=== PATIENT | female | born 1970 | race Caucasian/White ===

== ENCOUNTER 2021-02-03 16:14 | Emergency (ER) | payer OTHER, MEDICAID, SELFPAY ==
[2021-02-03] VITALS (40 sets, daily range): BP systolic 123–171; BP diastolic 79–130; PULSE 105–128; RESP 9–33; TEMP 36.7; O2SAT 86–97
--- NOTE | 2021-02-03 17:00 | RT.EKG_ITS ---
APPROVED REPORT Exam: Resting ECG Reason for Exam: tachycardia Patient Location: E HR:114 bpm ECG Measurements Heart Rate 114 AXIS NC 143 P 53 QRSd 67 QRS 66 QT 361 T -28 QTc 499 Conclusion Sinus tachycardia...rate> 99 Nonspecific T abnormalities, anterior leads...T <-0.10mV, V2-V4
[2021-02-03] MEDS: diazePAM 5 MG TAB PO (17:15)
[2021-02-03 17:47] LABS: ALT 27 U/L (14-59); AST 17 U/L (15-37); Alkaline Phosphatase 127 U/L (46-116); Anion Gap 11.7 mmol/L (3-11); BUN 5 mg/dL (7-18); Bilirubin, Total 0.6 mg/dL (0.2-1.0); CO2 29.3 mmol/L (21.0-32.0); CREATININE 1.3 mg/dL (0.55-1.02); Chloride 98 mmol/L (98-107); Estimated GFR 43.72 (mL/min/1.73m2); Glucose 185 mg/dL (74-106); Potassium 3.4 mmol/L (3.5-5.1); Sodium 139 mmol/L (136-145); Troponin I < 0.05 ng/mL (<0.06)
[2021-02-03 17:56] LABS: Abs Immature Grans 0.04 10^3/uL (0.0-0.06); Absolute Basophil Count 0.08 10^3/uL (0.0-0.2); Absolute Eosinophil Count 0.01 10^3/uL (0.0-0.7); Absolute Lymphocyte Count 2.62 10^3/uL (1.2-3.4); Absolute Monocyte Count 0.75 10^3/uL (0.1-0.8); Absolute Neutrophil Count 9.68 10^3/uL (1.2-6.7); Basophils % 0.6; Eosinophils % 0.1; HCT 50.9 % (36.0-46.0); HGB 15.9 g/dL (11.2-15.7); Immature Grans % 0.3; Lymphocytes % 19.9; MCH 26.7 pg (27.0-33.0); MCHC 31.2 % (32.0-36.0); MCV 85.5 fL (80-95); MPV 10.3 fL (8.0-11.0); Monocytes % 5.7; Neutrophils % 73.4; Nucleated RBC 0 %; Platelet Count 330 10^3/uL (130-400); RBC 5.95 10^6/uL (3.93-5.22); RDW 13.4 % (11.7-14.6); RDW-SD 42.1 fL; WBC 13.19 10^3/uL (4.4-10.8)
[2021-02-03] MEDS: Lactated Ringers 500 ML IV (18:05)
--- NOTE | 2021-02-03 19:30 | DI.CT_ITS ---
Exam(s) CT HEAD WO EXAM: CT HEAD WO CLINICAL HISTORY: frontal LOPEZ, ears ringing. TECHNIQUE: Imaging Protocol: Axial computed tomography images with coronal and sagittal reformatted images were created and reviewed COMPARISON: No exams were available for comparison FINDINGS: Ventricles and Extra axial spaces: Normal in size and morphology for the patient's age. Hemorrhage: None. Cerebral parenchyma: Normal. There are findings consistent with a partially empty sella. Midline shift: None. Brainstem/Cerebellum: Normal. Calvarium: Normal. Visualized Paranasal sinuses/Mastoids: Clear. Soft Tissues: Unremarkable. IMPRESSION: No acute intracranial process. RADIATION DOSE DELIVERED: 795.26mGy.cm Total DLP DATA REPOSITORY: All CT scans at this facility are submitted to the National Radiology Data Registry (NRDR) Dose Index Registry (DIR) with the [employer] (A[employer]). RADIATION OPTIMIZATION: All CT scans at this facility use at least one of these dose optimization te chniques: automated exposure control; mA and/or kV adjustment per patient size (includes targeted exa ms where dose is matched to clinical indication); or iterative reconstruction.
--- NOTE | 2021-02-03 19:31 | ED.GENADUL_ITS ---
Discharge Plan Disposition Patient Disposition: HOME Condition: Stable Discharge Details Clinical Impression: Anxiety, Tinnitus, bilateral, Difficulty sleeping Primary Care Provider: Rosibel Corbett ED Provider: Nate Dobbs Home Meds and New Rx's Prescriptions: No Action buspirone 30 mg tablet 30 mg PO BID Qty: 60 RF: 0 hydroxyzine HCl 50 mg tablet 50 mg PO BID Qty: 60 RF: 0 olanzapine 10 mg tablet 10 mg PO DAILY Qty: 30 RF: 0 omeprazole magnesium 20 mg tablet,delayed release (DR/EC) 20 mg PO DAILY Qty: 90 RF: 1 methadone 10 mg/mL solution 95 mg subcut DAILY RF: 0 Discharge Instructions Instructions: Alprazolam (By mouth), Anxiety (ED) Additional Instructions: Please take Xanax 0.25 mg orally once at night only if you have severe anxiety and to help you sleep. Do not take this with your methadone. Please contact your primary care physician to arrange follow-up. Call on Friday. Please do not take Benadryl. I recommend you decrease your dose of hydroxyzine to 50 mg twice a day. Discussed continued dosing with your doctor. Return to the ER immediately for any worsening or new concerning symptoms. Referrals: Rosibel Corbett, CHLOE [Primary Care Provider] - Discharge Data Discharge Date/Time-TO BE ENTERED AT DEPARTURE: 02/03/21 21:20 Medical Decision Making 50-year-old female with history of anxiety, bipolar, opioid use disorder now on methadone, PTSD, here with ear ringing and discomfort bilaterally and inability to sleep for the past 4 nights. Patient is tachycardic and hypertensive on arrival. Patient anxious. I gave Valium and reassessed and she noted she continued to have some ear discomfort. She did appear more relaxed. She also noted some frontal headache on reassessment. CT of the head was obtained and no acute abnormality was noted with no mass-effect. Screening labs reviewed: Leukocytosis. Patient afebrile. Patient reassessed and notes she continues to feel anxious and has continued ear discomfort. She is most concerned that she has not been able to sleep. I will give patient a couple doses of Xanax and have advised her to follow-up with her primary care physician. Usual and customary discharge instructions were reviewed with the patient. Lab Data Lab results reviewed: Yes I reviewed the patient's lab results. HPI General Mode of arrival: ambulatory . Date/Time Provider Initiated Documentation: 02/03/21 16:32 . Limitations to Documentation: no limitations . Information obtained by: patient . HPI Narrative: 50-year-old female with history of anxiety, bipolar, opioid use disorder now on methadone, PTSD, here with chief complaint ear ringing. Symptoms are bilateral. Moderate. No modifiers. She has associated discomfort bilateral ears. Also notes inability to sleep for the past 4 nights. Patient states taking medications as prescribed. Denies hallucinations. No LOPEZ. Related Data Home Medications Medication Instructions Recorded Confirmed buspirone 30 mg tablet 30 mg PO BID #60 tab 02/07/21 02/07/21 hydroxyzine HCl 50 mg tablet 50 mg PO BID #60 tab 02/07/21 02/07/21 methadone 10 mg/mL injection 95 mg SUBCUT DAILY 02/07/21 02/07/21 solution olanzapine 10 mg tablet 10 mg PO DAILY #30 tab 02/07/21 02/07/21 omeprazole magnesium 20 mg 20 mg PO DAILY #90 tab 02/07/21 02/07/21 tablet,delayed release Previous Rx's Medication Instructions Recorded buspirone 30 mg tablet 30 mg PO BID #60 tab 02/07/21 hydroxyzine HCl 50 mg tablet 50 mg PO BID #60 tab 02/07/21 olanzapine 10 mg tablet 10 mg PO DAILY #30 tab 02/07/21 omeprazole magnesium 20 mg 20 mg PO DAILY #90 tab 02/07/21 tablet,delayed release Allergies Allergy/AdvReac Type Severity Reaction Status Date / Time ciprofloxacin Allergy Severe Anaphylaxis Verified 02/07/21 12:51 cephalexin [From Keflex] Allergy Verified 02/07/21 12:51 gabapentin Allergy trouble Verified 02/07/21 12:51 breathing latex AdvReac Mild blister Verified 02/07/21 12:51 naproxen AdvReac Bleeding Verified 02/07/21 12:51 surgical tape AdvReac contact Uncoded 02/07/21 12:51 dermatitis General Stated Complaint: GenMedical BRITTANY: 3 Review of Systems All systems reviewed & are unremarkable except as noted in HPI and below Constitutional Constitutional: Denies fever(s) ENT Ears, Nose, Mouth, and Throat: Reports as per HPI [facility] Medical History (Updated 02/07/21 @ 13:58 by Rosibel Corbett NP) Anxiety Bipolar 1 disorder, depressed Hyperlipidemia, unspecified IFG (impaired fasting glucose) Insomnia Opioid use disorder, severe, on maintenance therapy BAART Peripheral neuropathy 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 and lumbar PTSD (post-traumatic stress disorder) Tinnitus, bilateral Tobacco use disorder Vapes Surgical History (Updated 02/07/21 @ 13:14 by Rosibel Corbett NP) History of partial hysterectomy (~2009) [place]; done for heavy bleeding Family History (Updated 02/07/21 @ 13:17 by Rosible Corbett NP) Father Cancer lung (smoker) Social History (Updated 02/07/21 @ 13:21 by Rosibel Corbett NP) Smoking/Tobacco Use Status: Current every day Tobacco Type: e-cigarettes Tobacco: How many years used: 20 Smokeless tobacco user: other Smoking risk assessment performed?: Yes Alcohol Intake: never Drug use: Current Sobriety Substance use type: does not use and former substance user Date of last use: opioids Details: Sobriety since ~2013 Adopted: No Caregiver/Support person: No Foster care: No Household members: none Housing: house Number of Children: 1 number of grandchildren: 0 Communication Needs: None Do you need help understanding health information?: Often current occupation: unemployed (on disability) Pets and animals: No Sexually active: No Do you think of yourself as: straight/heterosexual Current gender identity: female What is your relationship status?: How often do you talk on the phone with friends or family?: once per week How often do you get together with friends or relatives?: never Do you belong to any clubs or organized social groups?: no Panel score (0-1 are the most socially isolated patients): 0 What type of physical activity do you participate in: walking Frequency: 3-4 times per week Lawanda/Druze: Episcopal Agree to transfusion: Yes Seatbelt use: always Drive intox or ride w/intox otr company truck driver: No Working smoke detector in home: Yes Fire extinguisher in home: Yes Carbon monox detector in home: Yes Do you feel safe at home: Yes Do you feel safe in your relationship?: Yes Exam Const General: cooperative and no acute distress HENMT Head: normocephalic and atraumatic Ears: external ears normal and TM's normal bilaterally General nose exam: external nose normal Face and sinus: normal facial exam Mouth: moist mucous membranes Throat: posterior oropharynx normal Eyes Conjunctivae: normal conjunctivae Sclera: normal sclerae EOM: EOM intact bilaterally Neck Neck: trachea midline and supple Resp Auscultation: clear to auscultation bilaterally, no rales, no rhonchi and no wheezes Cardio Jugular venous pressure: no JVD Rate: regular rate and not tachycardic Rhythm: regular rhythm GI Palpation: soft, not firm, no guarding, no masses, not rigid and nontender Skin General skin exam: no rashes or lesions noted Neuro General: patient alert, patient awake, patient oriented x3 and tone normal Cognition: normal cognition Speech: speech normal Motor: muscle tone normal throughout and strength 5/5 throughout Sensory Exam: no sensory deficits noted Extrem General: no edema Psych Appearance: grossly normal Mental Status: mental status grossly normal Speech and Movement: speech and movement normal Affect: anxious affect Course Vital Signs Vital signs: Vital Signs Respiratory Rate 15 02/03/21 16:26 Pulse Oximetry 96 02/03/21 16:26 Temperature 36.7 C 02/03/21 17:14 Temperature Source Skin 02/03/21 17:14 Pulse 105 H 02/03/21 18:34 Pulse 116 H 02/03/21 18:40 Respiratory Rate 23 02/03/21 18:40 Respiratory Effort Non-Labored 02/03/21 18:28 Respiratory Depth Normal 02/03/21 18:28 Respiratory Pattern Normal 02/03/21 18:28 Blood Pressure 133/94 H 02/03/21 18:34 Blood Pressure Mean 103 02/03/21 18:34 Blood Pressure Position Supine 02/03/21 17:14 Pulse Oximetry 95 02/03/21 18:40 Oxygen Delivery Method Room Air 02/03/21 17:14 Oxygen Flow Rate 0 02/03/21 17:14 Pain Level 9 02/03/21 17:14 Lab/Test Results Lab/Test Results: Laboratory Tests Range/Units 02/03/21 02/03/21 17:10 17:10 WBC (4.4-10.8) 10^3/uL 13.19 H RBC (3.93-5.22) 10^6/uL 5.95 H Hgb (11.2-15.7) g/dL 15.9 H Hct (36.0-46.0) % 50.9 H MCV (80-95) fL 85.5 MCH (27.0-33.0) pg 26.7 L MCHC (32.0-36.0) % 31.2 L RDW (11.7-14.6) % 13.4 Plt Count (130-400) 10^3/uL 330 MPV (8.0-11.0) fL 10.3 Immature Gran % 0.3 Neutrophils % 73.4 Lymphocytes % 19.9 Monocytes % 5.7 Eosinophils % 0.1 Basophils % 0.6 Nucleated RBC % % 0 Absolute Neutrophils (1.2-6.7) 10^3/uL 9.68 H Absolute Lymphocytes (1.2-3.4) 10^3/uL 2.62 Absolute Monocytes (0.1-0.8) 10^3/uL 0.75 Absolute Eosinophils (0.0-0.7) 10^3/uL 0.01 Absolute Basophils (0.0-0.2) 10^3/uL 0.08 Sodium (136-145) mmol/L 139 Potassium (3.5-5.1) mmol/L 3.4 L Chloride (98-107) mmol/L 98 Carbon Dioxide (21.0-32.0) mmol/L 29.3 Anion Gap (3-11) mmol/L 11.7 H BUN (7-18) mg/dL 5 L Creatinine (0.55-1.02) mg/dL 1.3 H Estimated GFR/1.73 m2 (mL/min/1.73m2) 43.72 Glucose (74-106) mg/dL 185 H Calcium (8.5-10.1) mg/dL 11.0 H Total Bilirubin (0.2-1.0) mg/dL 0.6 AST (15-37) U/L 17 ALT (14-59) U/L 27 Alkaline Phosphatase (46-116) U/L 127 H Troponin I (<0.06) ng/mL < 0.05 Total Protein (6.4-8.2) g/dL 9.0 H Albumin (3.4-5.0) g/dL 4.0
[2021-02-03] MEDS: Acetaminophen 325 MG TAB 650 MG PO (19:58)
--- NOTE | 2021-02-03 20:20 | DI.VRAD_ITS ---
PROCEDURE INFORMATION: Exam: CT Head Without Contrast Exam date and time: 02/03/2021 7:31 PM Age: 50 years old Clinical indication: Other: Ringing in ears. Dizzy TECHNIQUE: Imaging protocol: Computed tomography of the head without contrast. COMPARISON: No relevant prior studies available. FINDINGS: Brain: Normal. No hemorrhage. Unremarkable white matter. No mass effect. Cerebral ventricles: No ventriculomegaly. Paranasal sinuses: Visualized sinuses are unremarkable. No fluid levels. Mastoid air cells: Visualized mastoid air cells are well aerated. Bones/joints: Unremarkable. No acute fracture. Soft tissues: Unremarkable. Other findings: There is partial empty sella. IMPRESSION: No acute abnormality. Dictated and Authenticated by: Kirill Newberry MD. Ordering:LEIGHTON Sullivan MD
[2021-02-03] MEDS: ALPRAZolam 0.25 MG TAB 0.75 MG PO (21:13)
== END 2021-02-03 21:20 | disposition home or self-care (01) ==
PROVIDERS: Emergency Provider Student in an Organized Health Care Education/Training Program; PCP Nurse Practitioner Family
DX: H93.13 Tinnitus, bilateral (principal); F41.9 Anxiety disorder, unspecified; G47.00 Insomnia, unspecified
CPT/HCPCS: 36415; 80053; 93005; 96360; 99284; 70450; 84484; 85025; 93010

== ENCOUNTER 2021-02-04 03:53 | Emergency (ER) | payer OTHER, MEDICAID, SELFPAY ==
[2021-02-04 03:55] VITALS: BP 171/105; PULSE 133; RESP 20; TEMP 37.2; O2SAT 96
--- NOTE | 2021-02-04 04:48 | ED.GENADUL_ITS ---
Discharge Plan Disposition Patient Disposition: HOME Condition: Improving Discharge Details Clinical Impression: Medication withdrawal, Gastritis Primary Care Provider: Rosibel Corbett ED Provider: Albino Luna Meds and New Rx's Prescriptions: New omeprazole magnesium 20 mg tablet,delayed release (DR/EC) 20 mg PO DAILY Qty: 20 RF: 0 Continued hydroxyzine HCl 50 mg tablet 50 mg PO TID RF: 0 methadone 10 mg/mL Solution 95 mg DAILY RF: 0 olanzapine 10 mg tablet 10 mg PO DAILY Qty: 5 RF: 0 buspirone 30 mg tablet 30 mg PO BID Qty: 10 RF: 0 Discharge Instructions Instructions: Gastritis (ED) Additional Instructions: Your buspirone and olanzapine will be ready for pickup today. This will get you through to appointment with psychiatry. Should also start omeprazole for gastritis. Follow-up with primary care in 1 to 2 weeks for recheck of this. Return to ED if abdominal pain, persistent/significant vomiting of blood, chest pain, shortness of breath, or other concerns. Medical Decision Making In reviewing the patient's medication history it turns out that her buspirone and olanzapine has not been prescribed for the last 2 to 3 weeks. She subsequently started to feel unwell with anxiety, difficulty sleeping, tremors, sweats about 4 days ago. In regards to her vomiting of blood she has a benign abdomen. She has no history of alcohol abuse. She is tachycardic I suspect is more related to withdrawal type symptoms given her lack of buspirone and olanzapine which was stopped abruptly. An NG tube was placed by nursing. No bright red blood returned. Slight darkish colored material turned as well as vomited. NG tube removed. IV has been started but no laboratory studies are sent. Patient given dose of IV pantoprazole. She is also given IM dose of olanzapine and oral dose of buspirone. Patient noted to have urinary frequency so urinalysis sent. Patient currently feeling much better, less anxious, no diapho resis or tremors status post medications. Urine is negative for infection. Prescription for olanzapine, buspirone, omeprazole sent to pharmacy. Patient to follow-up with psychiatry on the as scheduled. She will make appointment with PCP for follow-up of gastritis 2 weeks. Return to ED if problems. Medical Records Medical records reviewed: Yes I reviewed the patient's medical records. HPI General Mode of arrival: EMS . Date/Time Provider Initiated Documentation: 02/04/21 04:48 . Limitations to Documentation: no limitations . Information obtained by: patient, RN notes reviewed and old records reviewed . HPI Narrative: Patient returns to ED after visit earlier this evening now complaining of vomiting blood. Patient seen earlier for the URI type symptoms, ear pain, headache. Work-up included head CT which was negative. Patient reports this morning woke with some gagging and vomited blood twice. Unable to give description of how much. Denies any abdominal pain. Denies any alcohol use. No prior history of ulcers. Denies chest pain or shortness of breath. Continues to be anxious, tremulous, diaphoretic, not feeling well. Related Data Home Medications Medication Instructions Recorded Confirmed hydroxyzine HCl 50 mg tablet 50 mg PO TID 02/02/21 02/04/21 methadone 95 mg DAILY 02/03/21 02/04/21 buspirone 30 mg PO BID #10 tab 02/04/21 olanzapine 10 mg PO DAILY #5 tab 02/04/21 omeprazole magnesium 20 mg PO DAILY #20 tab 02/04/21 Previous Rx's Medication Instructions Recorded buspirone 30 mg PO BID #10 tab 02/04/21 olanzapine 10 mg PO DAILY #5 tab 02/04/21 omeprazole magnesium 20 mg PO DAILY #20 tab 02/04/21 Allergies Allergy/AdvReac Type Severity Reaction Status Date / Time ciprofloxacin Allergy Severe Anaphylaxis Verified 02/04/21 04:01 cephalexin [From Keflex] Allergy Verified 02/04/21 04:01 gabapentin Allergy trouble Verified 02/04/21 04:01 breathing naproxen AdvReac Bleeding Verified 02/04/21 04:01 surgical tape AdvReac contact Uncoded 02/04/21 04:01 dermatitis General Stated Complaint: GenMedical BRITTANY: 3 Review of Systems Narrative: As documented in HPI otherwise negative as below. Const: no fever, chills, weakness Resp: no cough, SOB, pleuritic pain CV: no CP, diaphoresis, edema, syncope GI: no abdominal pain, nausea, diarrhea Neuro: no headache, numbness, focal weakness, confusion PFSH Medical History Anxiety Bipolar 1 disorder, depressed Neuropathy Opioid use disorder, severe, on maintenance therapy PTSD (post-traumatic stress disorder) Surgical History History of partial hysterectomy (~2009) Family History (Updated 01/18/21 @ 09:32 by Lorikalli Melissa) Father Cancer lung Social History Smoking/Tobacco Use Status: Current every day Tobacco Type: e-cigarettes Smoking risk assessment performed?: Yes Alcohol Intake: never 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 HEENT: NC/AT. Normal facial exam. Eyes: Normal conjunctiva and sclera. Neck: Supple. Trachea midline. Lungs: Normal respiratory effort. Cor: RRR. Good radial pulses. GI: Soft. NT/ND. No guarding or rebound. Neuro: A+O x 3. Normal speech, mentation, gait. Cranial nerves II - XII grossly intact. No gross motor or sensory deficit. Ext: No C/C/E. Course Vital Signs Vital signs: Vital Signs Temperature 99.0 F 02/04/21 03:55 Pulse 133 H 02/04/21 03:55 Respiratory Rate 02/04/21 03:55 Blood Pressure 171/105 H 02/04/21 03:55 Pulse Oximetry 96 02/04/21 03:55 Temperature 99.0 F 02/04/21 03:55 Temperature Source Oral 02/04/21 03:55 Pulse 133 H 02/04/21 03:55 Respiratory Rate 02/04/21 03:55 Blood Pressure 171/105 H 02/04/21 03:55 Blood Pressure Position Sitting 02/04/21 03:55 Pulse Oximetry 96 02/04/21 03:55 Oxygen Delivery Method Room Air 02/04/21 03:55 Oxygen Flow Rate 0 02/04/21 03:55 Pain Level 8 02/04/21 03:55
[2021-02-04] MEDS: Pantoprazole 40 MG VIAL IVP (05:29)
[2021-02-04] MEDS: OLANZapine 10 MG VIAL IM (05:31)
[2021-02-04] MEDS: busPIRone 15 MG TAB 30 MG PO (05:38)
[2021-02-04 06:39] LABS: Bilirubin Negative (Negative); Blood Trace-intact (Negative); Clarity Sl Cloudy (Clear); Glucose Negative (Negative); Ketones Negative (Negative); Leukocyte Esterase Negative (Negative); Nitrite Negative (Negative)
[2021-02-04 06:46] LABS: Bacteria Few HPF (Negative); C & S Indicated? No/Sq. Contamination; Casts Negative LPF (Negative); Crystals Negative HPF (Negative); Epithelial Cells Many HPF (Negative); Mucus Negative (Negative); WBC 0-2 HPF (0-5)
== END 2021-02-04 07:03 | disposition home or self-care (01) ==
PROVIDERS: Emergency Provider Emergency Medicine; PCP Nurse Practitioner Family
DX: K29.60 Other gastritis without bleeding (principal); T43.596A Underdosing of other antipsychotics and neuroleptics, initial encounter; Z91.138 Patient's unintentional underdosing of medication regimen for other reason
CPT/HCPCS: 36415; 96372; 96374; 99284; 81003; 81015

== ENCOUNTER 2021-02-05 00:40 | Emergency (ER) | payer OTHER, MEDICAID, SELFPAY ==
[2021-02-05 00:46] VITALS: BP 128/104; PULSE 120; RESP 18; TEMP 36.4; O2SAT 95
--- NOTE | 2021-02-05 00:54 | ED.GENADUL_ITS ---
Discharge Plan Disposition Patient Disposition: HOME Condition: Good Discharge Details Clinical Impression: Anxiety, Difficulty sleeping Primary Care Provider: Rosibel Corbett ED Provider: Albino Luna Meds and New Rx's Prescriptions: Continued hydroxyzine HCl 50 mg tablet 50 mg PO TID RF: 0 methadone 10 mg/mL Solution 95 mg DAILY RF: 0 omeprazole magnesium 20 mg tablet,delayed release (DR/EC) 20 mg PO DAILY Qty: 20 RF: 0 olanzapine 10 mg tablet 10 mg PO DAILY Qty: 5 RF: 0 buspirone 30 mg tablet 30 mg PO BID Qty: 10 RF: 0 Discharge Instructions Additional Instructions: Please orange picker your prescriptions this morning. Begin taking your medication this evening. Remember that the buspirone is morning and night, the olanzapine I would take at night to help you sleep, the hydroxyzine is 3 times a day. The omeprazole is for stomach problem. You do need to follow-up with mental health on the . You will also need to follow-up with primary care in 1 to 2 weeks. Return to ED for new symptoms or unsafe feelings. Medical Decision Making Patient still looks better tonight than she had on her previous visit. She needs to restart her medication as we had discussed at her last visit. She simply mistaken when she should take them and does not seem to actually know that the buspirone is twice a day. Patient will be dosed tonight. Both the nurse and I have had long discussion and instruction regarding picking up the medications in the morning and when to take those medications. She is to follow-up with mental health on the as previously scheduled for further medication management. She should return to ED for new symptoms or feeling unsafe. HPI General Mode of arrival: EMS . Date/Time Provider Initiated Documentation: 02/05/21 00:54 . Limitations to Documentation: no limitations . Information obtained by: patient, RN notes reviewed and old records reviewed . HPI Narrative: Patient returns to ED after 2 visits yesterday for continued anxiety, inability to sleep, seeing things out of the periphery vision. She denies having headache, fever, chest pain, shortness of breath, vomiting, abdominal pain. Last night when I saw her we determined that she had been off her medications. She was given IM olanzapine and oral buspirone with improvement in symptoms. Prescriptions were sent to pharmacy but she did not pick them up today. She thought she was supposed to start taking them the following day. She denies SI or HI. Related Data Home Medications Medication Instructions Recorded Confirmed hydroxyzine HCl 50 mg tablet 50 mg PO TID 02/02/21 02/05/21 methadone 95 mg DAILY 02/03/21 02/05/21 buspirone 30 mg PO BID #10 tab 02/04/21 02/05/21 olanzapine 10 mg PO DAILY #5 tab 02/04/21 02/05/21 omeprazole magnesium 20 mg PO DAILY #20 tab 02/04/21 02/05/21 Previous Rx's Medication Instructions Recorded buspirone 30 mg PO BID #10 tab 02/04/21 olanzapine 10 mg PO DAILY #5 tab 02/04/21 omeprazole magnesium 20 mg PO DAILY #20 tab 02/04/21 Allergies Allergy/AdvReac Type Severity Reaction Status Date / Time ciprofloxacin Allergy Severe Anaphylaxis Verified 02/05/21 00:56 cephalexin [From Keflex] Allergy Verified 02/05/21 00:56 gabapentin Allergy trouble Verified 02/05/21 00:56 breathing naproxen AdvReac Bleeding Verified 02/05/21 00:56 surgical tape AdvReac contact Uncoded 02/05/21 00:56 dermatitis General BRITTANY: 3 Review of Systems Narrative: As documented in HPI otherwise negative as below. Const: no fever, chills, weakness Resp: no cough, SOB, pleuritic pain CV: no CP, diaphoresis, edema, syncope GI: no abdominal pain, nausea, vomiting, diarrhea Neuro: no headache, numbness, focal weakness, confusion PFSH Medical History Anxiety Bipolar 1 disorder, depressed Neuropathy Opioid use disorder, severe, on maintenance therapy PTSD (post-traumatic stress disorder) Surgical History History of partial hysterectomy (~2009) Family History (Updated 01/18/21 @ 09:32 by Lori Melissa) Father Cancer lung Social History Smoking/Tobacco Use Status: Current every day Tobacco Type: e-cigarettes Smoking risk assessment performed?: Yes Alcohol Intake: never Drug use: Never Substance use type: does not use and former substance user Details: 7 years sober Housing: house Do you need help understanding health information?: Often current occupation: unemployed Sexually active: No Do you think of yourself as: straight/heterosexual Current gender identity: female Do you feel safe at home: Yes Do you feel safe in your relationship?: Yes Exam Narrative Exam Narrative: Const: Obese female in NAD. HEENT: NC/AT. Normal facial exam. Neck: Supple. Trachea midline. Lungs: Normal respiratory effort Neuro: A+O x 3. Normal speech, mentation, gait. Cranial nerves II - XII grossly intact. No gross motor or sensory deficit. Ext: No C/C/E. Skin: A little diaphorectic. Psych: Reports seeing things out of the periphery of her vision. Reports anxiety and insomnia. Denies SI or HI. No auditory hallucination.
[2021-02-05] MEDS: OLANZapine 10 MG TAB PO (01:27)
[2021-02-05] MEDS: busPIRone 15 MG TAB 30 MG PO (01:27)
[2021-02-05 01:59] VITALS: BP 162/94; PULSE 95; RESP 18; O2SAT 96
[2021-02-05 02:15] VITALS: BP 137/93; PULSE 93; RESP 18; O2SAT 93
== END 2021-02-05 02:30 | disposition home or self-care (01) ==
PROVIDERS: Emergency Provider Emergency Medicine; PCP Nurse Practitioner Family
DX: F51.9 Sleep disorder not due to a substance or known physiological condition, unspecified (principal); G47.00 Insomnia, unspecified
CPT/HCPCS: 99283

== ENCOUNTER 2021-02-15 20:51 | Inpatient (IN) | payer OTHER, MEDICAID, SELFPAY ==
[2021-02-15 21:00] VITALS: BP 121/89; PULSE 114; RESP 18; TEMP 36.9; O2SAT 96
[2021-02-15 22:13] LABS: *AMPHETAMINES SCREEN URINE Negative (Negative); *BARBITURATES SCREEN URINE Negative (Negative); *BENZODIAZEPINES SCREEN URINE Negative (Negative); Cannabinoids THC Negative (Negative); Cocaine Screen,Urine Negative (Negative); METHADONE URINE SCREEN Positive (Negative); OPIATES URINE SCREEN Negative (Negative)
[2021-02-15 22:16] LABS: Tricyclic Antidepressants Negative (Negative)
--- NOTE | 2021-02-15 22:22 | W.ED.GENAD ---
Discharge Plan Disposition Patient Disposition: [facility] INPATIENT Condition: Improving Discharge Details Clinical Impression: Suicidal ideations, Depression Primary Care Provider: Rosibel Corbett ED Provider: Leobardo Clarke Home Meds and New Rx's Prescriptions: No Action buspirone 30 mg tablet 30 mg PO BID Qty: 60 RF: 0 hydroxyzine HCl 50 mg tablet 50 mg PO BID Qty: 60 RF: 0 olanzapine 10 mg tablet 10 mg PO DAILY Qty: 30 RF: 0 omeprazole magnesium 20 mg tablet,delayed release (DR/EC) 20 mg PO DAILY Qty: 90 RF: 1 methadone 10 mg/mL solution 95 mg subcut DAILY RF: 0 Medical Decision Making This is a 51-year-old female with a past medical history of PTSD, anxiety, bipolar type I, high cholesterol, who presents today for depression and suicidal ideation. Patient has attempted to end her life in the past by slitting her wrist. She was recently admitted to [facility] where she was treated for pneumonia and completed her treatment there, additionally while there from a psychiatric perspective her Zyprexa and hydroxyzine were stopped secondary to an elevated QTC. She is continued on her BuSpar and lorazepam as needed. Mental health saw and evaluated the patient there, deemed her stable for discharge and she was discharged this morning, throughout the day she noticed continued depression and had thoughts of self-harm, of which would be to slit her wrist. She denies auditory or visual hallucinations. She then came to the ER via ambulance for further assessment. Patient denies any other complaints. She denies any homicidal ideations. She denies any IV illicit drug use or alcohol use. Physical exam is stable and unremarkable. Patient appears medically stable with no evidence of acute life-threatening etiology for medical perspective, however she certainly does have evidence of wanting to harm herself, and has a clear plan for doing this. We did contact mental health, they have come assess the patient. Their recommendations at this time are voluntary admission for inpatient treatment, and medication adjustments and evaluation by psychiatrist. We will contact the hospitalist for admission. No beds are available now for psychiatric facility transfer. Patient remained stable in the ED with a sitter. Discussed the case with the hospitalist Dr. Reynolds, he agrees with the assessment and plan. Patient will be admitted. I will place bridging orders on his behalf. Medical work-up unremarkable. WBC count slightly elevated at 13, however this was the same on her last visit as well. No significant acute changes. No fever. I have extensively reviewed the treatment plan with the patient. I have addressed all patient concerns at this time. I have also discussed the plan with the admitting physician and they agree with the current assessment and plan and have agreed to assume responsibility for the patient. All parties demonstrate verbal understanding and agreement with our assessment and plan at this time. The documentation in this chart was dictated using Luk[employer] dictation software. Please excuse any dictation errors. HPI General Date/Time Provider Initiated Documentation: 02/15/21 21:01. HPI Narrative: This is a 51-year-old female with a past medical history of PTSD, anxiety, bipolar type I, high cholesterol, who presents today for depression and suicidal ideation. Patient has attempted to end her life in the past by slitting her wrist. She was recently admitted to [facility] where she was treated for pneumonia and completed her treatment there, additionally while there from a psychiatric perspective her Zyprexa and hydroxyzine were stopped secondary to an elevated QTC. She is continued on her BuSpar and lorazepam as needed. Mental health saw and evaluated the patient there, deemed her stable for discharge and she was discharged this morning, throughout the day she noticed continued depression and had thoughts of self-harm, of which would be to slit her wrist. She denies auditory or visual hallucinations. She then came to the ER via ambulance for further assessment. Patient denies any other complaints. She denies any homicidal ideations. She denies any IV illicit drug use or alcohol use. Related Data Home Medications Medication Instructions Recorded Confirmed buspirone 30 mg tablet 30 mg PO BID #60 tab 02/07/21 02/07/21 hydroxyzine HCl 50 mg tablet 50 mg PO BID #60 tab 02/07/21 02/07/21 methadone 10 mg/mL injection 95 mg SUBCUT DAILY 02/07/21 02/07/21 solution olanzapine 10 mg tablet 10 mg PO DAILY #30 tab 02/07/21 02/07/21 omeprazole magnesium 20 mg 20 mg PO DAILY #90 tab 02/07/21 02/07/21 tablet,delayed release Previous Rx's Medication Instructions Recorded buspirone 30 mg tablet 30 mg PO BID #60 tab 02/07/21 hydroxyzine HCl 50 mg tablet 50 mg PO BID #60 tab 02/07/21 olanzapine 10 mg tablet 10 mg PO DAILY #30 tab 02/07/21 omeprazole magnesium 20 mg 20 mg PO DAILY #90 tab 02/07/21 tablet,delayed release Allergies Allergy/AdvReac Type Severity Reaction Status Date / Time ciprofloxacin Allergy Severe Anaphylaxis Verified 02/07/21 12:51 cephalexin [From Keflex] Allergy Verified 02/07/21 12:51 gabapentin Allergy trouble Verified 02/07/21 12:51 breathing latex AdvReac Mild blister Verified 02/07/21 12:51 naproxen AdvReac Bleeding Verified 02/07/21 12:51 surgical tape AdvReac contact Uncoded 02/07/21 12:51 dermatitis General Stated Complaint: PsychEval BRITTANY: 2 Review of Systems All systems reviewed & are unremarkable except as noted in HPI and below PFSH Medical History Anxiety Bipolar 1 disorder, depressed Hyperlipidemia, unspecified IFG (impaired fasting glucose) Insomnia Opioid use disorder, severe, on maintenance therapy BAART Peripheral neuropathy 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 and lumbar PTSD (post-traumatic stress disorder) Tinnitus, bilateral Tobacco use disorder Vapes Surgical History History of partial [place] (~2009) [place]; done for heavy bleeding Family History Father Cancer lung (smoker) Social History Smoking/Tobacco Use Status: Current every day Tobacco Type: e-cigarettes Tobacco: How many years used: 20 Smokeless tobacco user: other Smoking risk assessment performed?: Yes Alcohol Intake: never Drug use: Current Sobriety Substance use type: does not use and former substance user Date of last use: opioids Details: Sobriety since ~2013 Adopted: No Caregiver/Support person: No Foster care: No Household members: none Housing: house Number of Children: 1 number of grandchildren: 0 Communication Needs: None Do you need help understanding health information?: Often current occupation: unemployed (on disability) Pets and animals: No Sexually active: No Do you think of yourself as: straight/heterosexual Current gender identity: female What is your relationship status?: How often do you talk on the phone with friends or family?: once per week How often do you get together with friends or relatives?: never Do you belong to any clubs or organized social groups?: no Panel score (0-1 are the most socially isolated patients): 0 What type of physical activity do you participate in: walking Frequency: 3-4 times per week Lawanda/Quaker: Jehovah's witness Agree to transfusion: Yes Seatbelt use: always Drive intox or ride w/intox 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 3.ENT: Atraumatic external nose and ears. Moist MM. Neck: Symmetric, trachea midline, No thyromegaly. 4.CVS: +S1/S2, No murmurs or gallops. Peripheral pulses 2+ and equal in all extremities. Brisk capillary refill in all extremities. 5.RESP: Unlabored respiratory effort. Clear to auscultation bilaterally. No wheezes rales or rhonchi 6.GI: Soft, Nontender/Nondistended, No hepatosplenomegaly. No guarding or rebound. 7.MSK: Normocephalic/Atraumatic, Extremities w/o deformity or ttp No cyanosis or clubbing, Normal movement of all extremities 8.Skin: Warm, Dry. No rashes or lesions. No evidence of active self-harm lesions. 9.Neuro: almond paste mixer II-XII grossly intact. Sensation grossly intact, no focal neurologic deficits. 10.Psych: (AAO) x3. Tearful, somewhat sad and nervous in appearance. Course Vital Signs Vital signs: Vital Signs Temperature 36.9 C 02/15/21 21:00 Pulse 114 H 02/15/21 21:00 Respiratory Rate 18 02/15/21 21:00 Blood Pressure 121/89 02/15/21 21:00 Pulse Oximetry 96 02/15/21 21:00 Temperature 36.9 C 02/15/21 21:00 Pulse 114 H 02/15/21 21:00 Respiratory Rate 18 02/15/21 21:00 Blood Pressure 121/89 02/15/21 21:00 Blood Pressure Position Sitting 02/15/21 21:00 Pulse Oximetry 96 02/15/21 21:00 Oxygen Delivery Method Room Air 02/15/21 21:00 Oxygen Flow Rate 0 02/15/21 21:00 Pain Level 0 02/15/21 21:00 Lab/Test Results Lab/Test Results: Laboratory Tests Range/Units 02/15/21 21:05 Urine Opiates Screen (Negative) Negative Urine Methadone Screen (Negative) Positive A Ur Barbiturates Screen (Negative) Negative Ur Tricyclics Screen (Negative) Negative Ur Amphetamines Screen (Negative) Negative U Benzodiazepines Scrn (Negative) Negative Urine Cocaine Screen (Negative) Negative Ur THC Screen (Negative) Negative POC- Test(urine) Negative
[2021-02-15 22:28] LABS: Abs Immature Grans 0.19 10^3/uL (0.0-0.06); Absolute Basophil Count 0.06 10^3/uL (0.0-0.2); Absolute Eosinophil Count 0.06 10^3/uL (0.0-0.7); Absolute Monocyte Count 0.62 10^3/uL (0.1-0.8); Absolute Neutrophil Count 10.02 10^3/uL (1.2-6.7); Basophils % 0.4; Eosinophils % 0.4; HCT 42.8 % (36.0-46.0); HGB 13.3 g/dL (11.2-15.7); Immature Grans % 1.4; Lymphocytes % 20.4; MCH 26.9 pg (27.0-33.0); MCHC 31.1 % (32.0-36.0); MCV 86.6 fL (80-95); MPV 9.1 fL (8.0-11.0); Monocytes % 4.5; Neutrophils % 72.9; Nucleated RBC 0 %; Platelet Count 355 10^3/uL (130-400); RBC 4.94 10^6/uL (3.93-5.22); WBC 13.75 10^3/uL (4.4-10.8)
[2021-02-15 22:29] LABS: Absolute Lymphocyte Count 2.81 10^3/uL (1.2-3.4)
[2021-02-15 22:40] LABS: Source Nasal/Nares
[2021-02-15 22:47] LABS: Acetaminophen < 2 ug/mL (10-30); Salicylate < 2.8 mg/dL (<2.8)
[2021-02-15 22:51] LABS: ALT 33 U/L (14-59); AST 35 U/L (15-37); Albumin 3.3 g/dL (3.4-5.0); Alkaline Phosphatase 96 U/L (46-116); Anion Gap 6.3 mmol/L (3-11); BUN 8 mg/dL (7-18); Bilirubin, Total 0.3 mg/dL (0.2-1.0); CO2 31.7 mmol/L (21.0-32.0); CREATININE 1.2 mg/dL (0.55-1.02); Chloride 100 mmol/L (98-107); Estimated GFR 47.95 (mL/min/1.73m2); Glucose 117 mg/dL (74-106); Potassium 4.2 mmol/L (3.5-5.1); Sodium 138 mmol/L (136-145); TSH (W/Ref FT4) 1.13 uIU/mL (0.36-3.74); Total Protein 7.9 g/dL (6.4-8.2)
[2021-02-15 23:02] LABS: ETHANOL BLOOD < 3.0 mg/dL (<3)
--- NOTE | 2021-02-15 23:28 | HPE_ITS ---
Date of service: 02/15/21 Time of Service: 23:28 Assessment and Plan Assessment and plan (1) Suicidal ideations: Status: Acute Assessment and plan: Acute suicidal ideation necessitating inpatient management. Evaluated by [facility] and felt appropriate for inpatient. No history or labs suggesting OD. She is awaiting placement in for psychiatric care. Voluntary admit. continue 1:1 sitter. (2) Bipolar 1 disorder, depressed: Status: Chronic Assessment and plan: Patient feels like olanzapine was working, thought unclear by history. Concern for QT prolongation with methadone, hydroxyzine, om eprazole. She has been on lithium per her history. Will defer alternative mood stabilizer to psychiatry. She does have chronic anxiety, states she taking lorazepam but not in her record or on UDS. Will Rx low dose prn until definitive psych treatment, monitor for signs of respiratory depression. (3) Tobacco use disorder: Status: Chronic Assessment and plan: Not ready to quit, NRT while here. (4) Gastritis: Status: Acute Assessment and plan: will Rx pantoprazole, omeprazole more problematic with QT. Qualifiers: Gastritis type: unspecified gastritis Chronicity: unspecified Gastritis bleeding: presence of bleeding unspecified Qualified Code(s): K29.70 - Gastritis, unspecified, without bleeding (5) Opioid use disorder, severe, on maintenance therapy: Status: Chronic Assessment and plan: stable on methadone per report, confirm with BAART and dose in am. (6) DVT prophylaxis: Status: Acute Assessment and plan: She is ambulatory with no inflammatory condition, no medical prophylaxis. (7) Discharge planning issues: Status: Acute Assessment and plan: She is clear for psychiatric placement when a bed available. Monitor until then. History of Present Illness History of Present Illness Chief Complaint: suicidal thoughts Narrative: 50 yo F with history of opioid use disorder on methadone and bipolar 1 who presented to the ED with severe depression. She was seen 02/03/21 for severe anxiety and treated with short term alprazolam. She returned the next day 02/04/21 and revealed she had been off her buspirone and olanzapine. These were restarted a long with hydroyzine. Head CT that day was negative, done for headache. She also described vomiting blood so was given pantoprazole and started on omeprazole. She returned 02/05/21 with futher anxiety but appeared improved. She saw her PCP in follow up 02/07/21. In the following week she was seen at [place] [facility] and treated for pneumonia and admitted for suicidal ideation. Her QTc was noted long so olanzapine and hydroxyzine were stopped. She did not get transferred but saw psych via telemedicine. Since then she has been taking buspirone and lorazepam (per her report) only along with her methadone. She returned today with depression and suicidal thoughts with a plan. See mental health notes for details. She states her methadone has been stable with take homes, no illicit drug use in years. Review of Systems Constitutional Constitutional: Denies anorexia, Denies chills, Denies fever(s), Reports headache(s) (not currently) and Denies weakness Eyes Eyes: Denies change in vision, Denies irritation and Denies other visual disturbances ENT Ears, Nose, Mouth, and Throat: Denies dental pain, Reports dizziness (off/on), Denies nasal congestion, Denies nasal discharge and Denies sore throat Cardiovascular Cardiovascular: Denies chest pain, Reports rapid heart rate, Reports palpitations (intermittent palpitations) and Denies dyspnea Respiratory Respiratory: Denies cough, Denies excessive phlegm production, Denies dyspnea and Denies wheezing Comments: pneumonia resolved Gastrointestinal Gastrointestinal: Reports as per HPI, Denies abdominal pain, Denies melena, Denies hematochezia, Denies heartburn, Denies nausea and Denies vomiting Genitourinary Genitourinary: Denies hematuria, Denies dysuria and Denies urinary incontinence Musculoskeletal Musculoskeletal: Denies joint swelling Integumentary/Breasts Skin/Breast: Denies rash and Denies skin ulcer Neurologic Neurologic: Denies abnormal speech, Reports dizziness (off/on), Denies sensory deficit and Denies weakness Psychiatric Psychiatric: Reports depression, Denies mood swings, Denies visual hallucinat ions, Denies hallucinations and Reports suicidal ideation Endocrine Endocrine: Reports palpitations (intermittent palpitations) Hematologic/Lymphatic Hematologic/Lymphatic: Denies easy bleeding Allergic/Immunologic Allergic/Immunologic: Denies wheezing [facility] Medical History Anxiety Bipolar 1 disorder, depressed Hyperlipidemia, unspecified IFG (impaired fasting glucose) Insomnia Opioid use disorder, severe, on maintenance therapy BAART Peripheral neuropathy 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 and lumbar PTSD (post-traumatic stress disorder) Tinnitus, bilateral Tobacco use disorder Vapes Surgical History History of partial [place] (~2009) [place]; done for heavy bleeding Family History Father Cancer lung (smoker) Social History (Updated 02/15/21 @ 23:41 by Thomas Estrada) Smoking/Tobacco Use Status: Current every day Tobacco Type: e-cigarettes Tobacco: How many years used: 20 Smokeless tobacco user: other Smoking risk assessment performed?: Yes Alcohol Intake: never Drug use: Current Sobriety Substance use type: does not use and former substance user Date of last use: opioids Details: Sobriety since ~2013 Adopted: No Caregiver/Support person: No Foster care: No Household members: none Housing: house Number of Children: 1 number of grandchildren: 0 Communication Needs: None Do you need help understanding health information?: Often current occupation: unemployed (on disability) Pets and animals: No Sexually active: No Do you think of yourself as: straight/heterosexual Current gender identity: female What is your relationship status?: How often do you talk on the phone with friends or family?: once per week How often do you get together with friends or relatives?: never Do you belong to any clubs or organized social groups?: no Panel score (0-1 are the most socially isolated patients): 0 What type of physical activity do you participate in: walking Frequency: 3-4 times per week Lawanda/Synagogue: [employer] Agree to transfusion: Yes Seatbelt use: always Drive intox or ride w/intox semi truck driver: No Working smoke detector in home: Yes Fire extinguisher in home: Yes Carbon monox detector in home: Yes Do you feel safe at home: Yes Do you feel safe in your relationship?: Yes Additional Social history: [facility] in [place]. On SSDI for Bipolar Meds Allergies and Home Medications Allergies Allergy/AdvReac Type Severity Reaction Status Date / Time ciprofloxacin Allergy Severe Anaphylaxis Verified 02/07/21 12:51 cephalexin [From Keflex] Allergy Verified 02/07/21 12:51 gabapentin Allergy trouble Verified 02/07/21 12:51 breathing latex AdvReac Mild blister Verified 02/07/21 12:51 naproxen AdvReac Bleeding Verified 02/07/21 12:51 surgical tape AdvReac contact Uncoded 02/07/21 12:51 dermatitis Home Medications Medication Instructions Recorded Confirmed Type buspirone 30 mg tablet 30 mg PO BID #60 tab 02/07/21 02/07/21 Rx hydroxyzine HCl 50 mg tablet 50 mg PO BID #60 tab 02/07/21 02/07/21 Rx methadone 10 mg/mL injection 95 mg SUBCUT DAILY 02/07/21 02/07/21 History solution olanzapine 10 mg tablet 10 mg PO DAILY #30 tab 02/07/21 02/07/21 Rx omeprazole magnesium 20 mg 20 mg PO DAILY #90 tab 02/07/21 02/07/21 Rx tablet,delayed release Exam Narrative Exam Narrative: GEN: Alert and oriented, pleasent and cooperative, gives linear history. No acute distress at rest. HEENT: Head atraumatic. Conjunctiva clear, no icterus. PEERL, EOMI. no rhinorrhea. MMM, OP benign. Neck is supple with no masses or lymphadenopathy, trachea midline LUNGS: CTAB with normal effort CV: RRR with no murmurs, gallops, or rubs. ABD: +BS, soft, NT/ND EXT: no cyanosis, clubbing, or edema MSK: No joint redness or swelling NEURO: CN 2-12 grossly intact. Normal movement of 4 extremities. Normal speech and coordination SKIN: No rashs or open wounds. PSYCH: mood and affect depressed, tearful at times. linear thought process. Results Imaging Imaging Studies: CT HEAD 02/04: no acute intracranial process Labs Result diagrams: 02/15/21 22:20 02/15/21 22:20 Labs: Laboratory Results - last 24 hr 02/15/21 02/15/21 02/15/21 21:05 22:20 22:20 WBC RBC Hgb Hct MCV MCH MCHC RDW Plt Count MPV Immature Gran % Neutrophils % Lymphocytes % Monocytes % Eosinophils % Basophils % Nucleated RBC % Absolute Neutrophils Absolute Lymphocytes Absolute Monocytes Absolute Eosinophils Absolute Basophils Sodium 138 Potassium 4.2 Chloride 100 Carbon Dioxide 31.7 Anion Gap 6.3 BUN 8 Creatinine 1.2 H Estimated GFR/1.73 m2 47.95 Glucose 117 H Calcium 10.0 Total Bilirubin 0.3 AST 35 ALT 33 Alkaline Phosphatase 96 Total Protein 7.9 Albumin 3.3 L TSH 1.13 Salicylates < 2.8 Urine Opiates Screen Negative Urine Methadone Screen Positive A Acetaminophen < 2 Ur Barbiturates Screen Negative Ur Tricyclics Screen Negative Ur Amphetamines Screen Negative U Benzodiazepines Scrn Negative Urine Cocaine Screen Negative Ur THC Screen Negative Ethyl Alcohol < 3.0 COVID-19 Source 02/15/21 02/15/21 22:20 22:25 WBC 13.75 H RBC 4.94 Hgb 13.3 Hct 42.8 MCV 86.6 MCH 26.9 L MCHC 31.1 L RDW 14.0 Plt Count 355 MPV 9.1 Immature Gran % 1.4 Neutrophils % 72.9 Lymphocytes % 20.4 Monocytes % 4.5 Eosinophils % 0.4 Basophils % 0.4 Nucleated RBC % 0 Absolute Neutrophils 10.02 H Absolute Lymphocytes 2.81 Absolute Monocytes 0.62 Absolute Eosinophils 0.06 Absolute Basophils 0.06 Sodium Potassium Chloride Carbon Dioxide Anion Gap BUN Creatinine Estimated GFR/1.73 m2 Glucose Calcium Total Bilirubin AST ALT Alkaline Phosphatase Total Protein Albumin TSH Salicylates Urine Opiates Screen Urine Methadone Screen Acetaminophen Ur Barbiturates Screen Ur Tricyclics Screen Ur Amphetamines Screen U Benzodiazepines Scrn Urine Cocaine Screen Ur THC Screen Ethyl Alcohol COVID-19 Source Nasal/Nares Last Vital Signs Temp 36.9 C 02/15/21 21:00 Pulse 114 H 02/15/21 21:00 Resp 18 02/15/21 21:00 BP 121/89 02/15/21 21:00 Pulse Ox 96 02/15/21 21:00
[2021-02-15 23:29] LABS: COVID-19 PCR Negative (Negative)
[2021-02-16 04:28] VITALS: BP 128/87; PULSE 91; RESP 20; TEMP 36.2; O2SAT 95
--- NOTE | 2021-02-16 05:00 | RT.EKG_ITS ---
APPROVED REPORT Exam: Resting ECG Reason for Exam: prolonged QT, affecting medical therapy Patient Location: I HR:83 bpm ECG Measurements Heart Rate 83 AXIS UT 144 P 12 QRSd 69 QRS 59 QT 373 T -1 QTc 437 Conclusion Sinus rhythm...normal P axis, V-rate 60- 99 Low voltage, precordial leads...precordial leads <1.0mV
[2021-02-16] MEDS: LORazepam 0.5 MG TAB PO ×4 (05:03→21:49)
[2021-02-16 06:55] LABS: Calculated LDL 107 mg/dL (<100); Cholesterol 193 mg/dL (<200); HDL Cholesterol 38 mg/dL (40-60); Magnesium 1.4 mg/dL (1.8-2.4); Triglyceride 240 mg/dL (<150)
[2021-02-16 07:02] LABS: Hemoglobin A1C 6.6 % (<5.7)
--- NOTE | 2021-02-16 07:20 | PDOC.CMSAFE ---
- If Service Date Differs Date of service: 02/16/21 Time of Service: 07:21 Care Management Safety Plan Status: Voluntary - Reason for Wait Reason for Wait: Inpatient Admission (CM faxed referral [facility] @[phone]. No MH note in chart. Uncertain if referral faxed prior to this A.M. ) VOLUNTARY FOR INPATIENT PSYCHIATRIC STABILIZATION. Patient is appropriate in all interactions since arriving at [facility]; Pt has demonstrated appropriate coping and communication skills, has articulated his or her needs and concerns and is fully engaged during staff interactions. Safety plan has been established with patient, and care team, to adhere to patient goals, identify restrictions based on behavioral status, address nutrition, and determine allowed personal belongings, tools for hygiene and personal care. Determine level of activity including ambulation, level of supervision, visitors, and determine privileges based on behaviors and level of engagement by pt. SAFETY PLAN: 1. Will remain on suicide precautions. In Paper Clothes at this time. 2. Will remain in room under direct supervision of one-on-one staff at all times provided by [employer]; JENNA, THERMOSTAT MECHANIC hay stacker operator. 3. May have paper cups, plates, finger foods as well as a cardboard spoon with which to eat meals. 4. Follow [facility] Management of the Admitted Behavioral Health Patient policy. 5. Comfort bath system as well as shower permitted per RN discretion. 6. No personal belongings 7. Visitors-No visitors at this time 8. Activities: music tablet, television and remote as well as soft cart items available all per RN discretion. 9. Bathroom privileges available in room without limitation. 10. Phone: incoming and outgoing on [facility] phone permitted per RN discretion. 11. Due to VOLUNTARY status, if patient wishes to leave [facility], staff will contact [facility] Crisis Screener ([phone]) and On-Call Medical Transcriber ([phone]) as soon as possible. In the event of elopement, notify [place] [employer] ([phone]). Patient is currently voluntarily at [facility] and seeking inpatient admission when a bed becomes available. [facility] Frontline Showcase Trimmer will continue seeking placement. Please contact the Director Of Loss Prevention Medical Transcriber ([phone]) and [facility] Showcase Trimmer ([phone]) for any needed changes in the Safety Plan. Safety plan has been provided to interdepartmental care team.
--- NOTE | 2021-02-16 07:29 | CMPROGNOTE_ITS ---
- If Service Date Differs Date of service: 02/16/21 Time of Service: 10:15 Care Management Progress Note 0720 Faxed referral to [facility]: awaiting update from [facility] re: accepting facilities for additional referrals. 0730 Draft safety plan, cancelled interim order. 1015 Met with Fatoumata [facility] and krzysztof Alfonso. Request referral to also be faxed to [facility], Perla-ANGELA completes task. Fatoumata reports Cricket has not yet entered her note from last night, but Fatoumata will enter hers soon. She states that she spoke to Avinash at [facility] in [place] who shared that Riya just left [facility] on a safety plan yesterday afternoon. Fatoumata stated Riya meets criteria for placement and will await placement at [facility]. - Status Status: Voluntary - Reason for Wait Reason for Wait: Inpatient Admission
--- NOTE | 2021-02-16 07:29 | PDOC.CMPRO ---
- If Service Date Differs Date of service: 02/16/21 Time of Service: 10:15 Care Management Progress Note 0720 Faxed referral to [facility]: awaiting update from [facility] re: accepting facilities for additional referrals. 0730 Draft safety plan, cancelled interim order. 1015 Met with Fatoumata [facility] and krzysztof Alfonso. Request referral to also be faxed to [facility], Perla-ANGELA completes task. Fatoumata reports Cricket has not yet entered her note from last night, but Fatoumata will enter hers soon. She states that she spoke to Avinash at [facility] in [place] who shared that Riya just left [facility] on a safety plan yesterday afternoon. Fatoumata stated Riya meets criteria for placement and will await placement at [facility]. - Status Status: Voluntary - Reason for Wait Reason for Wait: Inpatient Admission
[2021-02-16] MEDS: Nicotine 21 MG/24 HR PATCH TD ×2 (07:44→16:44)
[2021-02-16] MEDS: Pantoprazole 20 MG TABCR PO (07:45)
[2021-02-16] MEDS: busPIRone 15 MG TAB 30 MG PO ×2 (07:45→20:39)
[2021-02-16] MEDS: Methadone Liquid 10 MG/ML 95 MG PO (07:45)
[2021-02-16 07:50] VITALS: BP 115/83; PULSE 86; RESP 16; TEMP 35.8; O2SAT 97
[2021-02-16] MEDS: Magnesium Oxide 400 MG TAB 800 MG PO (08:34)
--- NOTE | 2021-02-16 09:58 | NUR.NOTE ---
Mental health in room. Nursing Note:
[2021-02-16] MEDS: Acetaminophen 325 MG TAB 650 MG PO (10:58)
--- NOTE | 2021-02-16 12:09 | MHPN_ITS ---
Date of service: 02/16/21 Time of Service: 12:09 Mental Health Crisis Note Presenting Issue How did you arrive at the ED and why did you come: Pt arrived to [facility] on 02.15.2021 after being discharged from [facility] earlier that day. She is seeking a voluntary admission for psychiatric treatment. Precipitating Factors Pt endorsed SI and denied HI. She is not showing any signs of delusions. Disposition BEHAVIOR: Pt is cooperative and engaged. She is soft spoken and repeats when necessary. EYE CONTACT: Eye contact is good. MOOD: Pt presents as depressed and withdrawn. AFFECT: Pt's affect is congruent with mood. APPETITE: Pt reported she is eating fine. SLEEP(trouble falling/staying asleep: Pt reportd that she has been struggling with sleep. Plan Pt will remain at [facility] pending placement availability. She will be evaluated by [facility] daily until placement is found or she is safe enough to safety plan back to her daily activities. All hospitals were call and no one has availabilities today. Clinical and medical were sent to [facility], [facility], [facility], and [facility]. A small Huddle was had with the nursing packing shed supervisor and Care management.
--- NOTE | 2021-02-16 14:21 | PDOC.MHCN ---
Date of service: 02/15/21 Time of Service: 09:20 Mental Health Crisis Note Presenting Issue How did you arrive at the ED and why did you come: Client arrived to ED via private transport. Client reported she she was having suicidal thought with fleeting plan to overdose or slit her wrist. Client stated she was scared to be alone alone because she is scared she would attempt suicide. Precipitating Factors Client endorsed SI but no HI. Disposition BEHAVIOR: Client presented as scared, anxious and tearful during this assessment. Client also expressed feeling helpless because she doesn't think anyone wants to help her. Cleint was very forthcoming and eager to seek treatment. EYE CONTACT: Client was able to maintain eye contact throughout this assessment MOOD: Client presented with depressed and hopeless mood. AFFECT: Client presented with restricted affect APPETITE: Client described her appetite as okay. Client also disclosed to this documentation writer she experiences intervals of poor appetite and overeating SLEEP(trouble falling/staying asleep: Client reported she had not slept in about 4 days to fear she might harm herself and feeling very anxious about being alone. Plan Client is currently on voluntary status and seeking in-patient treatment at this time. Client will remain at [facility] till she is placed in an appropriate treatment facility. Client will be reassessed daily till she is placed and will need to be reassessed if and when she decides to discharge before placement. Referrals have been sent to [facility], [facility], [facility] and [facility]. They are all pending review as well as bed availability at this time. Signature Clinician's Name/Title: Cheri Sumenr / Emergency Services Clinician, [facility].
--- NOTE | 2021-02-16 14:21 | NUR.NOTE ---
PT has personal hygiene things behind the glass window along with an extra pair of scrubs that are her size. Nursing Note:
--- NOTE | 2021-02-16 15:03 | W.PM.PROGNOT ---
Date of Service Date of service: 02/16/21 Time of Service: 15:03 Assessment and Plan Assessment and plan (1) Suicidal ideations: Status: Acute Assessment and plan: Acute suicidal ideation awaiting voluntary inpatient status. continue CPSO and safety plan (2) Bipolar 1 disorder, depressed: Status: Chronic Assessment and plan: Concern for QT prolongation with methadone, hydroxyzine, omeprazole. She has been on lithium per her history. Will defer alternative mood stabilizer to psychiatry. She does have chronic anxiety, states she taking lorazepam but not in her record or on UDS. Will Rx low dose prn until definitive psych treatment, monitor for signs of respiratory depression. (3) Tobacco use disorder: Status: Chronic Assessment and plan: Not ready to quit, nicotine replacement while here. (4) Gastritis: Status: Acute Assessment and plan: continue pantoprazole, omeprazole more problematic with QT. Qualifiers: Gastritis type: unspecified gastritis Chronicity: unspecified Gastritis bleeding: presence of bleeding unspecified Qualified Code(s): K29.70 - Gastritis, unspecified, without bleeding (5) Opioid use disorder, severe, on maintenance therapy: Status: Chronic Assessment and plan: stable on methadone per report, confirm with [facility] and dose in am. (6) DVT prophylaxis: Status: Acute Assessment and plan: She is ambulatory with no inflammatory condition, no medical prophylaxis. (7) Discharge planning issues: Status: Acute Assessment and plan: She is clear for psychiatric placement when a bed available. Monitor until then. case management and mental health following. case discussed with Dr Junior. Subjective Subjective Patient reports: no new complaints, tolerating liquids well, tolerating a regular diet and afebrile Exam Narrative Exam Narrative: GEN: Alert and oriented, pleasent and cooperative, pink warm dry and well perfused HEENT: Head atraumatic. EOMI. oral mucosa moist, neck supple LUNGS: respirations even and unlabored CV: RRR well perfused ABD: soft, non tender EXT: moves all extremities, no edema MSK: No joint redness or swelling NEURO: awake and oriented, SKIN: No rashes or lesions PSYCH: mood and affect depressed Objective Last Vital Signs Temp 35.8 C L 02/16/21 07:50 Pulse 86 02/16/21 07:50 Resp 16 02/16/21 07:50 BP 115/83 02/16/21 07:50 Pulse Ox 97 02/16/21 07:50 Laboratory Results - last 24 hr 02/15/21 02/15/21 02/15/21 21:05 22:20 22:20 WBC RBC Hgb Hct MCV MCH MCHC RDW Plt Count MPV Immature Gran % Neutrophils % Lymphocytes % Monocytes % Eosinophils % Basophils % Nucleated RBC % Absolute Neutrophils Absolute Lymphocytes Absolute Monocytes Absolute Eosinophils Absolute Basophils Sodium 138 Potassium 4.2 Chloride 100 Carbon Dioxide 31.7 Anion Gap 6.3 BUN 8 Creatinine 1.2 H Estimated GFR/1.73 m2 47.95 Glucose 117 H Hemoglobin A1c Calcium 10.0 Magnesium Total Bilirubin 0.3 AST 35 ALT 33 Alkaline Phosphatase 96 Total Protein 7.9 Albumin 3.3 L Triglycerides Total Cholesterol LDL Cholesterol, Calc HDL Cholesterol TSH 1.13 Salicylates < 2.8 Urine Opiates Screen Negative Urine Methadone Screen Positive A Acetaminophen < 2 Ur Barbiturates Screen Negative Ur Tricyclics Screen Negative Ur Amphetamines Screen Negative U Benzodiazepines Scrn Negative Urine Cocaine Screen Negative Ur THC Screen Negative Ethyl Alcohol < 3.0 COVID-19 Source SARS-CoV-2 (PCR) 02/15/21 02/15/21 02/16/21 22:20 22:25 06:20 WBC 13.75 H RBC 4.94 Hgb 13.3 Hct 42.8 MCV 86.6 MCH 26.9 L MCHC 31.1 L RDW 14.0 Plt Count 355 MPV 9.1 Immature Gran % 1.4 Neutrophils % 72.9 Lymphocytes % 20.4 Monocytes % 4.5 Eosinophils % 0.4 Basophils % 0.4 Nucleated RBC % 0 Absolute Neutrophils 10.02 H Absolute Lymphocytes 2.81 Absolute Monocytes 0.62 Absolute Eosinophils 0.06 Absolute Basophils 0.06 Sodium Potassium Chloride Carbon Dioxide Anion Gap BUN Creatinine Estimated GFR/1.73 m2 Glucose Hemoglobin A1c Calcium Magnesium 1.4 L Total Bilirubin AST ALT Alkaline Phosphatase Total Protein Albumin Triglycerides 240 H Total Cholesterol 193 LDL Cholesterol, Calc 107 H HDL Cholesterol 38 L TSH Salicylates Urine Opiates Screen Urine Methadone Screen Acetaminophen Ur Barbiturates Screen Ur Tricyclics Screen Ur Amphetamines Screen U Benzodiazepines Scrn Urine Cocaine Screen Ur THC Screen Ethyl Alcohol COVID-19 Source Nasal/Nares SARS-CoV-2 (PCR) Negative 02/16/21 06:20 WBC RBC Hgb Hct MCV MCH MCHC RDW Plt Count MPV Immature Gran % Neutrophils % Lymphocytes % Monocytes % Eosinophils % Basophils % Nucleated RBC % Absolute Neutrophils Absolute Lymphocytes Absolute Monocytes Absolute Eosinophils Absolute Basophils Sodium Potassium Chloride Carbon Dioxide Anion Gap BUN Creatinine Estimated GFR/1.73 m2 Glucose Hemoglobin A1c 6.6 H Calcium Magnesium Total Bilirubin AST ALT Alkaline Phosphatase Total Protein Albumin Triglycerides Total Cholesterol LDL Cholesterol, Calc HDL Cholesterol TSH Salicylates Urine Opiates Screen Urine Methadone Screen Acetaminophen Ur Barbiturates Screen Ur Tricyclics Screen Ur Amphetamines Screen U Benzodiazepines Scrn Urine Cocaine Screen Ur THC Screen Ethyl Alcohol COVID-19 Source SARS-CoV-2 (PCR)
--- NOTE | 2021-02-16 16:19 | PHA.REVIEW ---
Pharmacy Admission Review - Admission Clinical Review (Last Reviewed 02/15/21 @ 23:40 by Thomas Estrada) Discharge planning issues (Acute) DVT prophylaxis (Acute) Suicidal ideations (Acute) Gastritis (Acute) ciprofloxacin Allergy (Severe, Verified 02/16/21 03:02) Anaphylaxis cephalexin [From Keflex] Allergy (Verified 02/16/21 03:02) gabapentin Allergy (Verified 02/16/21 03:02) trouble breathing latex Adverse Reaction (Mild, Verified 02/16/21 03:02) blister naproxen Adverse Reaction (Verified 02/16/21 03:02) Bleeding surgical tape Adverse Reaction (Uncoded 02/16/21 03:02) contact dermatitis Resuscitation Status Full Code Height 5 ft 5 in Weight 116.3 kg - Renal Dosing Renal Dosing: BUN 8 mg/dL (7-18) 02/15/21 22:20 Creatinine 1.2 mg/dL (0.55-1.02) H 02/15/21 22:20 Medications needing adjustments: Reviewed List of meds needing interventions: eCrCl is 73 ml/min using adjusted bw - Anticoagulation Anticoagulation: Hgb 13.3 g/dL (11.2-15.7) 02/15/21 22:20 Hct 42.8 % (36.0-46.0) 02/15/21 22:20 Plt Count 355 10^3/uL (130-400) 02/15/21 22:20 Creatinine 1.2 mg/dL (0.55-1.02) H 02/15/21 22:20 DVT Prophylaxis: N/A Therapeutic Anticoagulation: N/A - Opiate Usage Evaluate Pain Scale/Pains Meds: Reviewed Scheduled Bowel Reg ordered if on Opiates?: No - Relevant Labs Sodium 138 mmol/L (136-145) 02/15/21 22:20 Potassium 4.2 mmol/L (3.5-5.1) 02/15/21 22:20 Chloride 100 mmol/L (98-107) 02/15/21 22:20 Magnesium 1.4 mg/dL (1.8-2.4) L 02/16/21 06:20 Electrolytes, C-Reactive P, ESR: Reviewed (mag replaced PO) - DM Control DM Control: Glucose 117 mg/dL (74-106) H 02/15/21 22:20 Hemoglobin A1c 6.6 % (<5.7) H 02/16/21 06:20 Insulin Dosing: Reviewed - Heart Failure/CT EF%, KIMBER's, B-Blockers, Diuretics: Reviewed - BP Control BP Control: Blood Pressure 115/83 Blood Pressure 128/87 If elevated: Reviewed - Qtc Review If Elevated: Reviewed List meds needing interventions: QTc 437 - IV to PO Switch IV Medications: Reviewed - Home Meds Home Med List reviewed: Reviewed Relevent Home Meds Not ordered & why?: all ordered, pantoprazole instead of omeprazole due to qt risk - Current meds Current Medication Order Review: Reviewed
[2021-02-16 16:41] VITALS: BP 113/69; PULSE 75; RESP 18; TEMP 36.1; O2SAT 96
[2021-02-16] MEDS: Magnesium Oxide 400 MG TAB PO (20:39)
[2021-02-17 00:42] VITALS: BP 94/64; PULSE 72; RESP 18; TEMP 36.1; O2SAT 96
[2021-02-17] MEDS: Acetaminophen 325 MG TAB 650 MG PO (01:02)
[2021-02-17] MEDS: Nicotine 21 MG/24 HR PATCH TD (07:31)
[2021-02-17] MEDS: Pantoprazole 20 MG TABCR PO (07:31)
[2021-02-17] MEDS: Magnesium Oxide 400 MG TAB PO ×2 (07:31→19:56)
[2021-02-17] MEDS: busPIRone 15 MG TAB 30 MG PO ×2 (07:31→19:56)
[2021-02-17 07:35] VITALS: BP 133/78; PULSE 76; RESP 16; TEMP 36.2; O2SAT 92
[2021-02-17] MEDS: LORazepam 0.5 MG TAB PO (07:45)
[2021-02-17] MEDS: Methadone Liquid 10 MG/ML 95 MG PO (08:25)
--- NOTE | 2021-02-17 14:01 | W.PM.PROGNOT ---
Date of Service Date of service: 02/17/21 Time of Service: 14:01 Assessment and Plan Assessment and plan (1) Suicidal ideations: Start date: 02/17/21 Start time: 14:03 Status: Acute Assessment and plan: Acute suicidal ideation awaiting voluntary inpatient status. continue CPSO and safety plan (2) Bipolar 1 disorder, depressed: Start date: 02/17/21 Start time: 14:03 Status: Chronic Assessment and plan: Concern for QT prolongation with methadone, hydroxyzine, omeprazole. She has been on lithium per her history. Will defer alternative mood stabilizer to psychiatry. She does have chronic anxiety, states she taking lorazepam but not in her record or on UDS. Will use 1 mg prn (3) Tobacco use disorder: Start date: 02/17/21 Start time: 14:04 Status: Chronic Assessment and plan: Not ready to quit, nicotine replacement while here. (4) Gastritis: Start date: 02/17/21 Start time: 14:04 Status: Acute Assessment and plan: continue pantoprazole, omeprazole more problematic with QT. Qualifiers: Gastritis type: unspecified gastritis Chronicity: unspecified Gastritis bleeding: presence of bleeding unspecified Qualified Code(s): K29.70 - Gastritis, unspecified, without bleeding (5) Opioid use disorder, severe, on maintenance therapy: Start date: 02/17/21 Start time: 14:04 Status: Chronic Assessment and plan: stable on methadone (6) DVT prophylaxis: Start date: 02/17/21 Start time: 14:04 Status: Acute Assessment and plan: She is ambulatory with no inflammatory condition, no medical prophylaxis. (7) Discharge planning issues: Start date: 02/17/21 Start time: 14:05 Status: Acute Assessment and plan: She is clear for psychiatric placement when a bed available. Monitor until then. case management and mental health following. case discussed with Dr Lopez. Subjective Subjective Patient reports: other Interval history since last seen: Continuing to have SI, states that 0.5 mg ativan does not work and has not in the past will increase to 1 mg. Tolerating food and diet continue CPSO and 1:1. Continues to wait for bed. Exam Narrative Exam Narrative: GEN: Alert and oriented, cooperative, pink warm dry and well perfused HEENT: Head atraumatic. EOMI. oral mucosa moist, neck supple LUNGS: respirations even and unlabored CV: RRR well perfused ABD: soft, non tender EXT: moves all extremities, no edema MSK: No joint redness or swelling NEURO: awake and oriented, SKIN: No rashes or lesions PSYCH: mood and affect depressed Objective Last Vital Signs Temp 36.2 C L 02/17/21 07:35 Pulse 76 02/17/21 07:35 Resp 16 02/17/21 07:35 BP 133/78 02/17/21 07:35 Pulse Ox 92 02/17/21 07:35
[2021-02-17] MEDS: LORazepam 0.5 MG TAB 1 MG PO ×2 (14:11→20:23)
[2021-02-17 15:03] VITALS: BP 103/71; PULSE 76; RESP 17; TEMP 36.2; O2SAT 93
--- NOTE | 2021-02-17 16:06 | PDOC.MHCN ---
Date of service: 02/17/21 Time of Service: 15:40 Mental Health Crisis Note Presenting Issue How did you arrive at the ED and why did you come: Patient arrived at the ED due to feelings of SI and wanting to get help and to start back on her medication. Precipitating Factors Patient shared that nothing has changed from yesterday, patient shared that on a scale of 0-10 she rates her SI at an 8. Patient shared that she wants to live and needs to get back on her medication so she can start to feel better. Patient shared that she went off her medications cold turkey due to changing med providers and being unable to fill her previous prescription. Disposition BEHAVIOR: cooperative EYE CONTACT: good MOOD: calm AFFECT: flat APPETITE: good SLEEP(trouble falling/staying asleep: not sleeping Plan Patient will remain at [facility] awaiting hospitalization. This customs entry writer will contact hospitals to get updates on referral status. Signature Clinician's Name/Title: Bobby DAVIDSON
--- NOTE | 2021-02-17 16:12 | W.ED.FU ---
Date of service: 02/18/21 Time of Service: 10:30
[2021-02-17 23:02] VITALS: BP 139/83; PULSE 81; RESP 19; TEMP 36.1; O2SAT 95
[2021-02-18] MEDS: LORazepam 0.5 MG TAB 1 MG PO ×2 (02:10→08:37)
[2021-02-18 07:47] VITALS: BP 107/73; PULSE 77; RESP 18; TEMP 37.3; O2SAT 94
[2021-02-18] MEDS: Methadone Liquid 10 MG/ML 95 MG PO (08:34)
[2021-02-18] MEDS: Pantoprazole 20 MG TABCR PO (08:36)
[2021-02-18] MEDS: Magnesium Oxide 400 MG TAB PO (08:36)
[2021-02-18] MEDS: busPIRone 15 MG TAB 30 MG PO (08:36)
[2021-02-18] MEDS: Nicotine 21 MG/24 HR PATCH TD (08:36)
--- NOTE | 2021-02-18 10:35 | W.PM.PROGNOT ---
Date of Service Date of service: 02/18/21 Time of Service: 10:35 Assessment and Plan Assessment and plan (1) Suicidal ideations: Start date: 02/18/21 Start time: 10:38 Status: Acute Assessment and plan: Acute suicidal ideation awaiting voluntary inpatient status. continue CPSO and safety plan (2) Bipolar 1 disorder, depressed: Start date: 02/18/21 Start time: 10:38 Status: Chronic Assessment and plan: Concern for QT prolongation with methadone, hydroxyzine, omeprazole. She has been on lithium per her history. Will defer alternative mood stabilizer to psychiatry. She does have chronic anxiety, states she taking lorazepam but not in her record or on UDS. Will use 1 mg ativan prn (3) Tobacco use disorder: Start date: 02/18/21 Start time: 10:38 Status: Chronic Assessment and plan: Not ready to quit, nicotine replacement while here. (4) Gastritis: Start date: 02/18/21 Start time: 10:38 Status: Acute Assessment and plan: continue pantoprazole, omeprazole more problematic with QT. Qualifiers: Gastritis type: unspecified gastritis Chronicity: unspecified Gastritis bleeding: presence of bleeding unspecified Qualified Code(s): K29.70 - Gastritis, unspecified, without bleeding (5) Opioid use disorder, severe, on maintenance therapy: Start date: 02/18/21 Start time: 10:38 Status: Chronic Assessment and plan: stable on methadone (6) Diarrhea: Start date: 02/18/21 Start time: 10:39 Status: Acute Assessment and plan: Per patient she was treated for pneumonia prior to hospitalization. Will place on bio-k with cholestryamine as needed for diarrhea. Though she is also on magnesium. Will r/o cdiff Qualifiers: Diarrhea type: presumed infectious Qualified Code(s): R19.7 - Diarrhea, unspecified (7) DVT prophylaxis: Status: Acute Assessment and plan: She is ambulatory with no inflammatory condition, no medical prophylaxis. (8) Discharge planning issues: Status: Acute Assessment and plan: She is clear for psychiatric placement when a bed available. Monitor until then. case management and mental health following. case discussed with Dr Lopez. Subjective Subjective Patient reports: other Interval history since last seen: Patient states having diarrhea, recently treated for pneumonia prior to admission at different hospital. Cdiff ordered, pending. Will order bio-k and cholestryamine. She continues to have SI. Continue CPSO and 1:1. Exam Narrative Exam Narrative: GEN: Alert and oriented, cooperative, pink warm dry and well perfused HEENT: Head atraumatic. EOMI. oral mucosa moist, neck supple LUNGS: respirations even and unlabored CV: RRR well perfused ABD: soft, non tender EXT: moves all extremities, no edema MSK: No joint redness or swelling NEURO: awake and oriented, SKIN: No rashes or lesions PSYCH: mood and affect depressed Objective Last Vital Signs Temp 37.3 C 02/18/21 07:47 Pulse 77 02/18/21 07:47 Resp 18 02/18/21 07:47 BP 107/73 02/18/21 07:47 Pulse Ox 94 02/18/21 07:47
--- NOTE | 2021-02-18 10:54 | PDOC.MHCN ---
Date of service: 02/18/21 Time of Service: 10:30 Mental Health Crisis Note Presenting Issue How did you arrive at the ED and why did you come: Patient arrived at [facility] due to thoughts of SI and wanting help. Precipitating Factors Patient shared that she is still having thoughts of SI on a scale of 0-10 patients rates SI at an 8. Patient shared that she will continue to stay here until she is able to get into a facility for support. Patient shared that she wants to get better she has a daughter to live for. Patient shared that she plans to try to get some rest not that her Ativan has been increased and she is in hopes that her anxiety level will decrease. Patient shared that she intends to take a shower later as she loves the water pressure here at the hospital. This flex o writer operator updated patients doctor and care management about placements. Disposition BEHAVIOR: cooperative EYE CONTACT: good MOOD: calm AFFECT: flat APPETITE: good SLEEP(trouble falling/staying asleep: not well, patient shared she may have slept 2 hours Plan Patient will remain at [facility] awaiting placement. ADITI Jamison, have been contacted beds are not available this weekend. [facility] shared they are reviewing referrals today and a have a few beds available. Signature Clinician's Name/Title: Bobby DAVIDSON
[2021-02-18 11:38] LABS: C Diff PCR Negative (Negative)
--- NOTE | 2021-02-18 12:43 | DSE_ITS ---
Date of service: 02/18/21 Time of Service: 12:43 DS: Diagnosis Discharge Diagnosis (1) Suicidal ideations: Start date: 02/18/21 Start time: 12:44 Status: Acute Asessment and Plan: Admitted for severe depression and SI after abruptly stopping off all her medication. She continues to have thoughts of SI. She has been on methadone 95 mg which she gets from [facility]. She has also been on ativan for anxiety 1 mg which she takes at home. She has been accepted to [facility] for further management. (2) Bipolar 1 disorder, depressed: Start date: 02/18/21 Start time: 12:50 Status: Chronic Asessment and Plan: defer to psychiatry for mood stabilizer (3) Tobacco use disorder: Start date: 02/18/21 Start time: 12:51 Status: Chronic Asessment and Plan: not interested in quitting (4) Gastritis: Start date: 02/18/21 Start time: 12:52 Status: Acute Asessment and Plan: was on protonix due to possible qt prolongation (5) Opioid use disorder, severe, on maintenance therapy: Start date: 02/18/21 Start time: 12:52 Status: Chronic Asessment and Plan: continue methadone (6) Diarrhea: Start date: 02/18/21 Start time: 12:52 Status: Acute Asessment and Plan: cdiff negative, likely from mag continue bio-k Discharge Plan Disposition Patient Disposition: OTHER Condition: Improving Discharge Details Reason For Visit: Depression,Suicidality Admit Date/Time: 02/17/21 14:06 Admit Provider: Thomas Estrada Attending Provider: Thomas Estrada Primary [facility]: [facility] Course Hospital Course: 50 yo F with history of opioid use disorder on methadone and bipolar 1 who presented to the ED with severe depression. She was seen 02/03/21 for severe anxiety and treated with short term alprazolam. She returned the next day 02/04/21 and revealed she had been off her buspirone and olanzapine. These were restarted along with hydroyzine. Head CT that day was negative, done for headache. She also described vomiting blood so was given pantoprazole and started on omeprazole. She returned 02/05/21 with further anxiety but appeared i mproved. She saw her PCP in follow up 02/07/21. In the following week she was seen at [facility] and treated for pneumonia and admitted for suicidal ideation. Her QTc was noted long so olanzapine and hydroxyzine were stopped. She did not get transferred but saw psych via telemedicine. Since then she has been taking buspirone and lorazepam (per her report) only along with her methadone. She returned on day of admission with depression and suicidal thoughts with a plan. See mental health notes for details. She was admitted to transition unit for until bed was available. She was given p rotonix due to QT prolongation. She continues to have thoughts of SI. She did have diarrhea, due to recent pneumonia cdiff r/o, negative. She is on mag, likely the source. She has been medically cleared and accepted for transfer to [facility] for further treatment. Home Meds and New Rx's Prescriptions: Continued buspirone 30 mg tablet 30 mg PO BID Qty: 60 RF: 0 methadone 10 mg/mL Concentrate 95 mg PO DAILY AM RF: 0 lorazepam [Ativan] 1 mg Tablet 1 mg PO TID PRNRF: 0 No Action omeprazole magnesium 20 mg tablet,delayed release (DR/EC) 20 mg PO DAILY Qty: 90 RF: 1 Discharge Instructions Stand Alone Forms: Nursing Discharge Form Activity:: Activity as Tolerated Equipment/Supplies:: No Equipment Needed Diet:: As Tolerated Discharge Orders Discharge Orders: Discharge Order (Routine); Ordered 02/18/21 Ordered By: Radha Mehta DS: Summary Time Spent with Patient providing and/or coordinating discharge services: Less than 30 minutes Status at Discharge Functional status at discharge: independent ambulation Overall status at discharge: patient is not back to baseline Mental Status: other Speech and Movement: speech and movement normal Mood: other Affect: sad Exam Narrative Exam Narrative: GEN: Alert and oriented, cooperative, pink warm dry and well perfused HEENT: Head atraumatic. EOMI. oral mucosa moist, neck supple LUNGS: respirations even and unlabored CV: RRR well perfused ABD: soft, non tender EXT: moves all extremities, no edema MSK: No joint redness or swelling NEURO: awake and oriented, SKIN: No rashes or lesions PSYCH: mood and affect depressed Psych Mental Status: other Speech and Movement: speech and movement normal Mood: other Affect: sad DS: Data Vitals/I&O Vitals and I&O: Vital Signs Temperature 37.3 C 02/18/21 07:47 Temperature Source Tympanic 02/18/21 07:47 Pulse 77 02/18/21 07:47 Pulse Rhythm Regular 02/18/21 05:00 Respiratory Rate 18 02/18/21 07:47 Respiratory Effort 02/18/21 05:00 Respiratory Depth Normal 02/18/21 05:00 Respiratory Pattern Normal 02/18/21 05:00 Blood Pressure 107/73 02/18/21 07:47 Blood Pressure Position Sitting 02/15/21 21:00 Pulse Oximetry 94 02/18/21 07:47 Oxygen Delivery Method Room Air 02/18/21 07:47 Oxygen Flow Rate 0 02/18/21 07:47 Pain Level 8 02/18/21 07:47 Comment 02/17/21 11:05 Intake & Output 02/17/21 02/18/21 02/18/21 23:59 11:59 23:59 Intake Total 820 / 1460 Balance 820 / 1460 Weight 117.079 kg Intake: Oral 820 / 1460 Other: Stool Size Moderate Smear Stool Characteristics Soft Soft Liquid Voiding Methods Toilet Toilet Toilet Data Completed and Pending Completed studies during hospitalization [Text1]: FINDINGS: Ventricles and Extra axial spaces: Normal in size and morphology for the patient's age. Hemorrhage: None. Cerebral parenchyma: Normal. There are findings consistent with a partially empty sella. Midline shift: None. Brainstem/Cerebellum: Normal. Calvarium: Normal. Visualized Paranasal sinuses/Mastoids: Clear. Soft Tissues: Unremarkable. IMPRESSION: No acute intracranial process. 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 PTSD (post-traumatic stress disorder) Tinnitus, bilateral Tobacco use disorder Vapes Surgical History History of partial hysterectomy (~2009) [place]; done for heavy bleeding Family History Father Cancer lung (smoker) Social History Smoking/Tobacco Use Status: Current every day Tobacco Type: e-cigarettes Tobacco: How many years used: 20 Smokeless tobacco user: other Smoking risk assessment performed?: Yes Alcohol Intake: never Drug use: Current Sobriety Substance use type: does not use and former substance user Date of last use: opioids Details: Sobriety since ~2013 Adopted: No Caregiver/Support person: No Foster care: No Household members: none Housing: house Number of Children: 1 number of grandchildren: 0 Communication Needs: None Do you need help understanding health information?: Often current occupation: unemployed (on disability) Pets and animals: No Sexually active: No Do you think of yourself as: straight/heterosexual Current gender identity: female What is your relationship status?: How often do you talk on the phone with friends or family?: once per week How often do you get together with friends or relatives?: never Do you belong to any clubs or organized social groups?: no Panel score (0-1 are the most socially isolated patients): 0 What type of physical activity do you participate in: walking Frequency: 3-4 times per week Lawanda/Mormonism: Religion Agree to transfusion: Yes Seatbelt use: always Drive intox or ride w/intox taxi cab driver: No Working smoke detector in home: Yes Fire extinguisher in home: Yes Carbon monox detector in home: Yes Do you feel safe at home: Yes Do you feel safe in your relationship?: Yes Additional Social history: Lives at [facility] in [place]. On SSDI for Bipolar
--- NOTE | 2021-02-18 15:06 | NUR.NOTE ---
Nursing Note: At 1500 on 02/18/21, this RN gave report on the pt. to AUDRA Tony at [facility]. Hemalatha (? blood coordinator) from [facility] then provided this RN with the name of the accepting physician, as well as, the phone number for that physician, so that this RN could provide it to the transferring physician, so that a provider to provider report could be given. At 1505 on 02/18/21, this RN spoke with Radha Mehta NP, provided her with the name and phone number of the accepting physician, and informed her that [facility] was requesting a provider to provider report. [employer] CLERK stated that she would call and give report. RN will reassess as necessary.
== END 2021-02-18 14:50 | disposition other institution (70) | DRG 885 ==
LOC: ER 23:15 → MS 02-16 04:21
PROVIDERS: Nurse Practitioner Family; Admitting Provider Family Medicine; Emergency Provider Student in an Organized Health Care Education/Training Program; PCP Nurse Practitioner Family; Visit Provider Family Medicine
DX: F31.9 Bipolar disorder, unspecified (principal); R45.851 Suicidal ideations; F11.20 Opioid dependence, uncomplicated; F43.10 Post-traumatic stress disorder, unspecified; F41.9 Anxiety disorder, unspecified; E78.00 Pure hypercholesterolemia, unspecified; R73.01 Impaired fasting glucose; G47.00 Insomnia, unspecified; G62.9 Polyneuropathy, unspecified; K29.70 Gastritis, unspecified, without bleeding; Z20.822 Contact with and (suspected) exposure to COVID-19; F17.290 Nicotine dependence, other tobacco product, uncomplicated
CPT/HCPCS: 36415; 80053; 80061; 80307; 81025; 87493; 87635; 99285; 80320; 80329; 83036; 83735; 84443; 85025; 93005; 93010; 99226; 99232; 99238; 99284

== ENCOUNTER 2021-03-14 02:29 | Outpatient (CLI) | payer OTHER, MEDICAID, SELFPAY ==
[2021-03-14 11:35] LABS: Hemoglobin A1C 5.9 % (<5.7)
[2021-03-14 12:41] LABS: BUN 8 mg/dL (7-18); CREATININE 1.2 mg/dL (0.55-1.02); Calcium 9.8 mg/dL (8.5-10.1); Chloride 101 mmol/L (98-107); Estimated GFR 47.95 (mL/min/1.73m2); Glucose 137 mg/dL (74-106); Potassium 4.3 mmol/L (3.5-5.1); Sodium 140 mmol/L (136-145)
[2021-03-14 12:52] LABS: Calculated LDL 160 mg/dL (<100); Cholesterol 247 mg/dL (<200); HDL Cholesterol 34 mg/dL (40-60); Triglyceride 269 mg/dL (<150)
[2021-03-15 10:19] LABS: HIV-1/2 Ag & Ab Screen Negative (Negative)
[2021-03-15 10:27] LABS: Hepatitis C Ab w Rflx HCV PCR Negative (Negative)
== END 2021-03-14 02:30 | disposition home or self-care (01) ==
LOC: LBO 02:29
PROVIDERS: PCP Nurse Practitioner Family; Visit Provider Nurse Practitioner Family
DX: E78.5 Hyperlipidemia, unspecified (principal); R73.01 Impaired fasting glucose; N28.9 Disorder of kidney and ureter, unspecified; Z11.4 Encounter for screening for human immunodeficiency virus [HIV]; Z11.59 Encounter for screening for other viral diseases
CPT/HCPCS: 36415; 80048; 80061; 86803; 87389; 83036